=== PATIENT | female | born 1955 | race Caucasian/White ===

== ENCOUNTER 2016-10-31 15:47 | Emergency (ER) | payer MEDICAID, OTHER ==
[~2016-10-31] VITALS: Ht 162.6 cm; Wt 93.6 kg
[~2016-10-31 15:47] MED LIST: AMLO5TAB2 PO; [UNRECOGNIZED DRUG - REMARK] PO
[2016-10-31 16:21] LABS: HEMOGLOBIN 14.1 g/dL (11.7-16.4)
[2016-10-31] MEDS ORDERED: SODIUM CHLORIDE 0.9% 1,000ML IVBOLUS ONE (16:30)
[2016-10-31] MEDS ORDERED: KETOROLAC 30 MG/1 ML ONE (16:35)
[2016-10-31 16:37] LABS: ASPARTATE AMINO TRANSFERASE 14 U/L (15-37); BLOOD UREA NITROGEN 9 mg/dL (7-18); IS PT STATUS REG ER OR PRE ER? YES
[2016-10-31] MEDS ORDERED: KETOROLAC 30 MG/1 ML IVPush ONE (17:00)
[2016-10-31 17:37] VITALS: BP 147/80
== END 2016-10-31 18:45 | disposition home or self-care (01) ==
LOC: ED 18:39
DX: R42 Dizziness and giddiness (principal); R20.0 Anesthesia of skin; I10 Essential (primary) hypertension
CPT/HCPCS: 36415; 70450; 71020; 80053; 84436; 84443; 84484; 85025; 93005; 96361; 96374; 99285; J1885; J7030

== ENCOUNTER 2017-07-17 19:05 | Emergency (ER) | payer MEDICAID ==
[~2017-07-17] VITALS: Ht 162.6 cm; Wt 90.9 kg
[2017-07-17 19:28] VITALS: BP 90/55
[2017-07-17 20:19] LABS: HEMATOCRIT 43.1 % (34.6-47.8); HEMOGLOBIN 14.1 g/dL (11.7-16.4); WHITE BLOOD COUNT 9.9 x10^3/uL (3.4-10)
== END 2017-07-17 22:25 | disposition home or self-care (01) ==
LOC: ED 22:15
DX: M25.571 Pain in right ankle and joints of right foot (principal); I10 Essential (primary) hypertension
CPT/HCPCS: 36415; 84550; 85025; 85651; 99285

== ENCOUNTER 2018-09-29 14:48 | Emergency (ER) | payer MEDICAID ==
[~2018-09-29] VITALS: Ht 162.6 cm; Wt 90.3 kg
[~2018-09-29 14:48] MED LIST changes: +AMLO-150 PO; -AMLO5TAB2 PO
[2018-09-29 14:55] VITALS: BP 179/93
[2018-09-29] MEDS ORDERED: IBUPROFEN 200 MG TABLET ONE (15:43)
--- NOTE | 2018-09-29 15:45 | NUR ---
Pt medicated per MAR.
--- NOTE | 2018-09-29 15:50 | NUR ---
Pt ambulated to bathroom, no assistance required.
[2018-09-29] MEDS ORDERED: IBUPROFEN 200 MG TABLET PO ONE (16:00)
--- NOTE | 2018-09-29 16:08 | NUR ---
Patient/Caregiver given discharge instructions and they have confirmed that they understand the instructions. Patient ambulatory with steady gait.
== END 2018-09-29 16:10 | disposition home or self-care (01) ==
LOC: ED 15:45
DX: M76.62 Achilles tendinitis, left leg (principal); M79.672 Pain in left foot; K21.9 Gastro-esophageal reflux disease without esophagitis; I10 Essential (primary) hypertension
CPT/HCPCS: 99283

== ENCOUNTER 2018-11-19 16:00 | Emergency (ER) | payer MEDICAID ==
[~2018-11-19] VITALS: Ht 162.6 cm; Wt 88.6 kg
[2018-11-19 16:03] VITALS: BP 153/87
--- NOTE | 2018-11-19 16:25 | NUR ---
PT AMBULATORY WITH STEADY GAIT FROM IMAGING
--- NOTE | 2018-11-19 16:40 | NUR ---
Patient/Caregiver given discharge instructions and they have confirmed that they understand the instructions. Patient ambulatory with steady gait. PT LEFT WITH ALL PERSONAL BELONGINGS.
== END 2018-11-19 16:42 | disposition home or self-care (01) ==
LOC: ED 16:35
DX: J00 Acute nasopharyngitis [common cold] (principal); K21.9 Gastro-esophageal reflux disease without esophagitis; I10 Essential (primary) hypertension; Z90.89 Acquired absence of other organs
CPT/HCPCS: 71046; 99283

== ENCOUNTER 2018-12-31 04:29 | Emergency (ER) | payer MEDICAID ==
[~2018-12-31] VITALS: Ht 162.6 cm; Wt 88.9 kg
--- NOTE | 2018-12-31 04:44 | NUR ---
PT PRESENTED WITH C/O BILAT MIDDLE BACK PAIN STARTED YESTERDAY. STATED RECENTLY HELPED DAUGHTER MOVED. MONITORS APPLIED, SIDERAILS UP X2, CALL LIGHT WITHIN REACH
[2018-12-31] MEDS ORDERED: KETOROLAC 30 MG/1 ML ONE (04:56)
[2018-12-31] MEDS ORDERED: METHOCARBAMOL 500 MG TABLET ONE (04:57)
[2018-12-31] MEDS ORDERED: METHOCARBAMOL 750 MG TABLET PO ONE (05:00)
[2018-12-31] MEDS ORDERED: KETOROLAC 30 MG/1 ML IM ONE (05:00)
--- NOTE | 2018-12-31 05:02 | NUR ---
pt medicated per mar
--- NOTE | 2018-12-31 05:06 | NUR ---
pt to xray
[2018-12-31 05:49] LABS: ALBUMIN 3.8 g/dL (3.4-5.0); ANION GAP 5 mmol/L (5-15); CALCIUM 9.1 mg/dL (8.5-10.1); CHLORIDE 107 mmol/L (98-107)
[2018-12-31 05:50] LABS: BASOPHILS # (AUTO) 0.07 x10^3/uL (0-0.1); BASOPHILS % (AUTO) 1 % (0-1); EOSINOPHILS # (AUTO) 0.07 x10^3/uL (0-0.4); EOSINOPHILS % (AUTO) 1 % (1-7); LYMPHOCYTES # (AUTO) 1.67 x10^3/uL (1-3.4); LYMPHOCYTES % (AUTO) 19 % (22-44); MD NO; MEAN CORPUSCULAR HEMOGLOBIN 29.1 pg (27.0-34.8); MEAN CORPUSCULAR HGB CONC 32.8 g/dL (32.4-35.8); MEAN CORPUSCULAR VOLUME 88.7 fL (80-100); MEAN PLATELET VOLUME 9.8 fL (7.4-10.4); MONOCYTES # (AUTO) 0.66 x10^3/uL (0.2-0.8); MONOCYTES % (AUTO) 8 % (2-9); NEUTROPHILS # (AUTO) 6.42 x10^3/uL (1.8-6.8); NEUTROPHILS % (AUTO) 72 % (42-75); PLATELET COUNT 191 x10^3/uL (130-400); RED BLOOD COUNT 4.79 x10^6/uL (3.82-5.3)
[2018-12-31 05:55] LABS: CREATININE 0.74 mg/dL (0.55-1.02); TROPONIN I < 0.015 ng/mL (0.000-0.045)
[2018-12-31 06:39] VITALS: BP 159/85
== END 2018-12-31 06:45 | disposition home or self-care (01) ==
LOC: ED 05:34
DX: S29.012A Strain of muscle and tendon of back wall of thorax, initial encounter (principal); M51.34 Other intervertebral disc degeneration, thoracic region; K21.9 Gastro-esophageal reflux disease without esophagitis; I10 Essential (primary) hypertension; X58.XXXA Exposure to other specified factors, initial encounter; Y93.89 Activity, other specified; Y92.89 Other specified places as the place of occurrence of the external cause; Y99.8 Other external cause status
CPT/HCPCS: 36415; 71046; 72072; 80048; 82040; 83880; 84484; 85025; 93005; 96372; 99284; J1885

== ENCOUNTER 2020-06-09 10:44 | Emergency (ER) | payer MEDICARE, MEDICAID ==
[~2020-06-09] VITALS: Ht 162.6 cm; Wt 92.8 kg
[2020-06-09 11:18] VITALS: BP 166/82
--- NOTE | 2020-06-09 13:50 | NUR ---
PT AMBULATORY TO ROOM AT THIS TIME.
== END 2020-06-09 14:45 | disposition home or self-care (01) ==
LOC: ED 14:00
DX: S96.912A Strain of unspecified muscle and tendon at ankle and foot level, left foot, initial encounter (principal); I10 Essential (primary) hypertension; K21.9 Gastro-esophageal reflux disease without esophagitis; Z90.89 Acquired absence of other organs; X58.XXXA Exposure to other specified factors, initial encounter; Y93.89 Activity, other specified; Y92.009 Unspecified place in unspecified non-institutional (private) residence as the place of occurrence of the external cause; Y99.8 Other external cause status
CPT/HCPCS: 99283

== ENCOUNTER 2020-12-01 10:48 | Emergency (ER) | payer MEDICARE, MEDICAID ==
[~2020-12-01] VITALS: Ht 162.6 cm; Wt 95.8 kg
--- NOTE | 2020-12-01 11:24 | NUR ---
PT REFUSED LAB DRAW STATING "YOU ONLY HAVE 2 YRS OF EXPERIENCE. I WANT SOME PROFICIENT, I DON'T WANT TO BE PRICKED 2 OR 3 TIMES"- ERP AWARE, PT EDUCATED ON DELAY OF CARE. Addendum: 12/01/20 at 1127 by KALYAN PT REFUSED LAB DRAW STATING "YOU ONLY HAVE 2 YRS OF EXPERIENCE. I WANT SOMEONE PROFICIENT, I DON'T WANT TO BE PRICKED 2 OR 3 TIMES"- ERP AWARE, PT EDUCATED ON DELAY OF CARE.
--- NOTE | 2020-12-01 11:34 | NUR ---
XRAY AT BS
[2020-12-01 11:46] LABS: BASOPHILS % (AUTO) 2 % (0-1); EOSINOPHILS % (AUTO) 3 % (1-7); LYMPHOCYTES % (AUTO) 23 % (22-44); MEAN CORPUSCULAR HEMOGLOBIN 28.8 pg (27.0-34.8); MEAN CORPUSCULAR HGB CONC 33.6 g/dL (32.4-35.8); MEAN PLATELET VOLUME 9.6 fL (7.4-10.4); MONOCYTES % (AUTO) 7 % (2-9); NEUTROPHILS % (AUTO) 66 % (42-75); PLATELET COUNT 201 x10^3/uL (130-400); RED BLOOD COUNT 4.87 x10^6/uL (3.82-5.3); RED CELL DISTRIBUTION WIDTH 14.9 % (9.6-15.2)
[2020-12-01 11:47] LABS: MD NO
[2020-12-01 11:53] LABS: ALBUMIN 3.7 g/dL (3.4-5.0); ANION GAP 6 mmol/L (5-15); CHLORIDE 108 mmol/L (98-107)
[2020-12-01 12:13] LABS: ALANINE AMINOTRANSFERASE 17 U/L (12-78); ALKALINE PHOSPHATASE 74 U/L (45-117); BILIRUBIN,TOTAL 0.3 mg/dL (0.2-1.0); CREATININE 0.66 mg/dL (0.55-1.02); TOTAL PROTEIN 6.8 g/dL (6.4-8.2)
[2020-12-01 12:50] VITALS: BP 171/91
== END 2020-12-01 12:52 | disposition home or self-care (01) ==
LOC: ED 12:46
DX: R06.00 Dyspnea, unspecified (principal); I10 Essential (primary) hypertension; R06.02 Shortness of breath; K21.9 Gastro-esophageal reflux disease without esophagitis; Z90.89 Acquired absence of other organs
CPT/HCPCS: 36415; 71045; 80053; 85025; 93005; 99285

== ENCOUNTER 2021-01-14 14:04 | Emergency (ER) | payer MEDICARE, MEDICAID ==
[~2021-01-14] VITALS: Ht 162.6 cm; Wt 95.1 kg
[2021-01-14 14:20] VITALS: BP 143/92
--- NOTE | 2021-01-14 14:54 | NUR ---
PROPERTY CARETAKER: PT TO ROOM FROM [facility]
--- NOTE | 2021-01-14 15:38 | NUR ---
Patient given discharge instructions and RX, they have confirmed that they understand the instructions. Patient ambulatory with steady gait.
== END 2021-01-14 15:39 | disposition home or self-care (01) ==
LOC: ED 15:29
DX: J98.01 Acute bronchospasm (principal); I10 Essential (primary) hypertension; Z90.89 Acquired absence of other organs; R50.9 Fever, unspecified
CPT/HCPCS: 71046; 87081; 87880; 99284